=== PATIENT | female | born 1960 | race Caucasian/White ===

== ENCOUNTER → 2021-07-20 | Outpatient (CLI) | payer BC ==
[~2021-07-20] MED LIST: AMARYL4 MG PO; CELECOXIB200 MG PO; CELEXA20 MG PO; COMBIVENT INH; COZAAR 50 MG TA50 M1 PO; JANUMET XR 50-1 EAC1 PO; LEVOTHYROXINE 0.15MG PO; LEXAPRO20 MG PO; PRILOSEC 20 MG20 MG PO; SOLIQUA 100 UNIT3 ML SUBQ; TRESIBA100 UNIT/1 SUBQ
== END ==
LOC: M.PC 09:31
PROVIDERS: ATTEND Physical Medicine & Rehabilitation
DX: M51.16 Intervertebral disc disorders with radiculopathy, lumbar region (principal); M48.061 Spinal stenosis, lumbar region without neurogenic claudication; M47.26 Other spondylosis with radiculopathy, lumbar region; M43.16 Spondylolisthesis, lumbar region; M79.605 Pain in left leg; I10 Essential (primary) hypertension; E11.9 Type 2 diabetes mellitus without complications; E03.9 Hypothyroidism, unspecified

== ENCOUNTER → 2021-07-26 | Outpatient (CLI) | payer BC ==
--- NOTE | 2021-07-26 16:31 | CARDNUC ---
[place] [address] CARDIAC NUCLEAR IMAGING REPORT Name: TAMIA BRUCE Room: [facility]#: [id number] Admission: 07/26/21 Attend Phys: Elsie Theodore Discharge: Date of : 60 Date of Service: 07/26/21 1631 Report #: [id number] THIS REPORT FOR: cc: Freddy Reese MD, Anthony MD [place],Nirmal Foster MD [facility] ~ APPROVED REPORT Imaging Protocol: Rest Tc-99m/Stress Tc-99m 1 day Study performed: 07/26/2021 09:26:00 Indication: High Calcium score Patient Location: Out-Patient Stress Tech: shara Stress Nurse: Shara Mclaughlin RN NM Tech:SKYE Hillman Ht: 5 ft 3 in Wt: 162 lbs BSA: 1.77 m2 BMI: 28.69 Medical History Medical History: COPD, CAD non obstructive, Diabetes, HTN Medications: losartan Allergies: penisillin Cardiac Risk Factors: Age, DM, HTN Exercise History: Sedentary Resting Data Rest SPECT myocardial perfusion imaging was performed in supine position 30 minutes following the intravenous injection of 10.1 mCi of Tc-99m Sestamibi. Time of rest injection: 819 Date: 07/26/2021 The images were gated to evaluate regional wall motion and calculate left ventricular ejection fraction. Administration Route: IV Pharmacologic Stress Pharmacologic stress test was performed by injecting Regadenoson 0.4 mg IV push over 10-15 seconds immediately followed by the intravenous injection of 34.0 mCi of Tc-99m Sestamibi. Time of stress injection: 934 Date: 07/26/2021 Administration Route: IV Gated Stress SPECT was performed 40 [place] [address] CARDIAC NUCLEAR IMAGING REPORT Name: TAMIA BRUCE [id number] Admission: 07/26/21 Attend Phys: Elsie Theodore Discharge: Date of : 60 Date of Service: 07/26/21 1631 Report #: [id number] injection. The images were gated to evaluate regional wall motion and calculate left ventricular ejection fraction. Prone imaging was performed. Stress Test Details Stress Test: Pharmacologic stress testing performed using 0.4 mg of regadenoson per 5 mL given IV over 10 seconds. Reason for pharmacologic stress test: physical limitation. HR Max Heart Rate (APMHR): 159 bpm Resting HR: 65 bpm Target HR (85% APMHR): 135 bpm Max HR Achieved: 88 bpm % of APMHR: 55 Recovery HR: 89 bpm BP Resting BP: 113/69 mmHg Max BP: 111/88 mmHg Recovery BP: 126/61 mmHg ECG Resting ECG: Sinus Rhythm Stress ECG: Sinus Rhythm ST Change: None Arrhythmia: None Recovery ECG: Sinus Rhythm Recovery ST Change: None Recovery Arrhythmia: None Clinical Reason for Termination: Completed protocol The patient tolerated Lexiscan infusion without significant cardiac symptoms. Nurse Comments Patient has back and leg pain Stress ECG Conclusion The baseline twelve-lead EKG shows sinus rhythm without significant ST segment or T wave abnormality. EKGs obtained during and post Lexiscan infusion shows sinus rhythm with no significant ST segment or T wave changes when compared to baseline. There were no stress-induced arrhythmias. Study Quality Study: [place] [address] CARDIAC NUCLEAR IMAGING REPORT Name: TAMIA BRUCE MIRTA Room: [facility]#: [id number] Admission: 07/26/21 Attend Phys: Elsie Theodore Discharge: Date of : 60 Date of Service: 07/26/21 1631 Report #: [id number] Artifact: No artifact Study Data At rest, the left ventricular ejection fraction was 72%.. Post stress, the left ventricular ejection was 77%.. TID = 1.00. Perfusion There is a small in size moderate intensity reversible defect seen in the apical portion of the inferolateral wall. No other significant fixed or reversible defects are identified. Wall Motion Gated studies are technically inadequate for interpretation. Raw data suggests relatively preserved LV systolic function. Nuclear Conclusion ECG Findings: negative for ischemia Clinical Findings: negative for ischemia Nuclear Findings: positive for ischemia Exercise Capacity: not assessed Left Ventricular Function: Preserved Risk Study: moderate Study suggest inducible ischemia of the apical portion of the inferolateral wall. Global LV systolic function appears to be preserved. This is a moderate risk study. <Conclusion> The baseline twelve-lead EKG shows sinus rhythm without significant ST segment or T wave abnormality. EKGs obtained during and post Lexiscan infusion shows sinus rhythm with no significant ST segment or T wave changes when compared to baseline. There were no stress-induced arrhythmias. <ELECTRONICALLY SIGNED> By: Nirmal Garcia MD, FACC 07/26/21 1631 163 [id number] Nirmal Garcia MD, FACC /INF
== END ==
LOC: M.NUC 07-15 14:41
PROVIDERS: ATTEND Internal Medicine
DX: R93.1 Abnormal findings on diagnostic imaging of heart and coronary circulation (principal); E11.9 Type 2 diabetes mellitus without complications; Z79.4 Long term (current) use of insulin; Z72.0 Tobacco use

== ENCOUNTER 2021-08-05 07:35 | Observation (INO) | payer BC ==
[2021-08-05] VITALS (11 sets, daily range): BP systolic 11–150; BP diastolic 53–66
[~2021-08-05] VITALS: Ht 152.4 cm; Wt 73.9 kg
--- NOTE | ~2021-08-05 | H ---
[address] [address] HISTORY AND PHYSICAL Name: TAMIA BRUCE MIRTA Room: [address] Anali Pham#: [id number] Admission: 08/05/21 Attend Phys: Arnoldo Kelly MD, Discharge: 08/06/21 Date of : 60 Report #: [id number] THIS REPORT FOR: cc: Freddy Reese MD, Anthony MD [facility],Medical Records Staff ~ Please refer to the History and Physical performed in the physician's office. By: 0655Medical Records Staff PIERRE /SANDRA
--- NOTE | ~2021-08-05 | D ---
[address] [address] DISCHARGE SUMMARY Name: TAMIA BRUCE Room: [address] Anali Pham#: [id number] Admission: 08/05/21 Attend Phys: Arnoldo Kelly MD, Discharge: Date of : 60 Report #: [id number] THIS REPORT FOR: cc: Freddy Reese MD, Anthony MD Holkins,Arnoldo Monson MD [facility] ~ DATE OF DISCHARGE: 08/06/2021 LOCATION: The patient discharged from room 220 on 08/06/2021. FINAL DISCHARGE DIAGNOSES: 1. Abnormal nuclear stress test. 2. Coronary artery disease. 3. Diabetes mellitus. 4. Hypertension. 5. Hyperlipidemia. 6. Arthritis. PROCEDURES: On 08/05/2021 - Left heart catheterization, left ventriculography, selective coronary arteriography and percutaneous coronary intervention with deployment of drug-eluting stents at the site of 90% mid LAD stenosis. HOSPITAL COURSE: The patient is a pleasant 61-year-old female who presented to the office to see me with the risk factors for coronary artery disease and markedly increased coronary calcium score with a predominance distributed in the right coronary distribution. She had an abnormal nuclear stress test with inducible inferior ischemia. Given her multiple risk factors, increased coronary calcium score and abnormal nuclear stress test, I proceeded with cardiac catheterization on 08/05/2021. That study revealed significant coronary artery disease characterized by the following: A. A 90% mid LAD stenosis with collaterals in the distal LAD to a chronic total occluded right coronary artery. B. A 75% narrowing in the first marginal branch of the nondominant circumflex. C. Total mid right coronary occlusion with recanalization that faintly filled the distal right coronary antegrade fashion with CARRINGTON 1 flow with prominent left to right collateral from the apical LAD and the septum filling the distal right coronary artery. LV function was normal, estimated ejection fraction of 65% without segmental wall motion abnormalities. Given this anatomy and the clinical context, I elected to perform a PCI, deploying 2 drug-eluting stents, one 2.0 x 12 and one 2.0 x 8 [place] [address] DISCHARGE SUMMARY Name: TAMIA BRUCE MIRTA Room: [address] M.R.#: [id number] Admission: 08/05/21 Attend Phys: Arnoldo Kelly MD, Discharge: Date of : 60 Report #: [id number] of the LAD with 0% residual narrowing and CARRINGTON 3 flow to the distal vessel. The patient did well post-procedurally and there was good hemostasis at the right femoral site of catheterization. She was started on dual antiplatelet therapy in the form of prasugrel and aspirin and continued on her other medications. DISCHARGE MEDICATIONS: The patient was discharged home on 08/06/2021 on the following medications: Prasugrel 10 mg daily, aspirin 81 mg daily, celecoxib 200 mg daily, Lexapro 20 mg daily, Amaryl 4 mg b.i.d., degludec insulin 30 units subcutaneously daily, glargine insulin 30 units subcutaneously daily, L-thyroxine or Synthroid 150 mcg daily, losartan 50 mg daily and p.r.n. sublingual nitroglycerin. The patient is scheduled to return to see my nurse practitioner in 7-10 days and myself in 6 weeks. By: 1504 1531Arnoldo Kelly MD, FACC /nt
[~2021-08-05 07:35] MED LIST changes: +ADULT LOW DOSE81 MG PO; +NITROGLYCERIN0.4 MG SUBLING
[2021-08-05 09:01] LABS: HEMATOCRIT 41.9 % (37.0-47.0); HEMOGLOBIN 14.4 gm/dL (12.0-15.0); MCH 31.2 pg (26.0-34.0); MCHC 34.4 g/dL (28.0-37.0); MCV 90.6 fL (80.0-100.0); MPV 7.5 fl. (7.2-11.1); RBC 4.63 mil/uL (4.20-5.00); RDW-CV 12.6 % (10.5-14.5); WBC 10.6 thou/uL (4.0-11.0)
[2021-08-05 09:12] LABS: ANION GAP 8 mmol/L (7-16); BUN 18 mg/dL (7-18); CALCIUM 9.3 mg/dL (8.5-10.1); CHLORIDE 100 mmol/L (98-107); CO2 28 mmol/L (21-32); CREATININE 0.8 mg/dL (0.6-1.3); GLUCOSE 250 mg/dL (70-99); POTASSIUM 4.7 mmol/L (3.5-5.1); SODIUM 136 mmol/L (136-145)
[2021-08-05 09:16] LABS: INR 0.9; PROTIME 10.1 Seconds (9.20-11.50)
[2021-08-05 09:24] LABS: ALBUMIN 3.5 g/dL (3.4-5.0); ALKALINE PHOSPHATASE 117 U/L (46-116); SGOT 11 U/L (15-37); SGPT 26 U/L (30-65); TOTAL BILIRUBIN 0.3 mg/dL (<0.1-1.0); TOTAL PROTEIN 6.9 g/dL (6.4-8.2)
[2021-08-05 09:36] LABS: CHOLESTEROL 262 mg/dL (<200); HDL CHOLESTEROL 35 mg/dL (>40); TC:HDL 7.5 Ratio (Not establshd); TRIGLYCERIDE 467 mg/dL (<150); VLDL 93 mg/dL (<40)
[2021-08-05 09:37] LABS: LDL CHOLESTEROL ND mg/dL (<100); SERUM ASSESSMENT Clear
--- NOTE | 2021-08-05 13:24 | CARD ---
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 The right femoral was infiltrated with 2% Lidocaine subcutaneous anesthesia. IV conscious sedation was used throughout procedure with appropriate monitoring and was performed in the presence of a registered nurse who was an independent trained observer other than the physician performing the procedure. A 6 Fr Banquete sheath was inserted into the right femoral artery. Coronary angiography was performed using coronary diagnostic catheters. The right coronary system was accessed and visualized with a 6Fr 3DRC catheter. The left coronary system was accessed and visualized with a 6Fr JL3.5 catheter. The left ventricle was accessed and visualized with a 6Fr Stra[place] [address] CARDIAC CATH REPORT Name: TAMIA BRUCE Room: [address]#: [id number] Admission: 08/05/21 Attend Phys: Arnoldo Kelly MD, Discharge: Date of : 60 Report #: [id number] Left ventricular/Aortic Valve gradient assessed via catheter pullback. Left ventriculogram was performed in SNELL projection. Pre-demployment femoral angiogram was performed in SNELL. Closure device was deployed with a 6 Fr Angioseal. The patient tolerated the procedure well and there were no complications associated with the procedure. There was no hematoma. Intraoperative Conscious Sedation Sedation start time: 957 Case end Time: 1104 Fentanyl 25.0 mcg Versed 3.0 mg Fluoro Time: 15.2 minutes Dose: DAP [id number] cGycm2 1725 mGy Contrast Type and Amount: Visipaque 290 ml Coronary Angiography The patient's coronary anatomy is right dominant. Diagnostic Cath Left Main 0% narrowing LAD 90% mid vessel stenosis Circumflex 75% stenosis of the first marginal branch of the nondominant circumflex Right Coronary 100% occlusion of the mid right coronary artery with recanalization to fill the distal right coronary artery with CARRINGTON I flow; there were prominent [id number]-[id number] collaterals from the LAD filling the distal right coronary artery Left Ventriculography The left ventricle is normal in size with normal contractility. The left ventricular ejection fraction is estimated to be 65%. Left ventricular wall motion abnormalities are not present. There is no mitral insufficiency. Hemodynamics The aortic pressure is 97/51 mmHg with a mean of 70 mmHg. The left ventricular pressure is 98/1 mmHg with a mean of 6 mmHg. The left ventricular end diastolic pressure is 6 mmHg. There was no gradient across the aortic valve upon pullback. PCI Technique Lesion Anticoagulation was achieved with Angiomax. Percutaneous coronary intervention was performed on the mid left anterior descending artery segment. The lesion stenosis prior to intervention [place] 90% [place] [address] CARDIAC CATH REPORT Name: TAMIA BRUCE MIRTA Room: [address]#: [id number] Admission: 08/05/21 Attend Phys: Arnoldo Kelly MD, Discharge: Date of : 60 Report #: [id number] flow. A XBLAD 3 6Fr Guide Catheter was used to engage the Left ostium. A 190cm BMW Interventional Guidewire was used to cross the lesion. BALLOON DILATION A Balloon catheter 2.0 x 8 Mini Trek was inserted and inflated up to 10atm for 14seconds. Additional Inflation: 9atm for 12seconds. STENT DEPLOYMENT A 2.0 x 12 [place] stent was inserted and inflated up to 10atm for 16seconds. Additional Inflation: 9atm for 10seconds. 2.0 x 8 mm [place] was deployed just proximal to the first stent to pressures of 10 to 12 christie POST STENT DEPLOYMENT BALLOON DILATION A Balloon catheter 2.0 x 8 NC Trek was inserted and inflated up to 16atm for 14seconds. Additional Inflation: 17atm for 11seconds. Final angiography reveals 0 % stenosis with CARRINGTON 3 flow. Conclusion 1. Significant multivessel coronary artery disease characterized by the following: A 90% stenosis of the midportion of the LAD B nondominant circumflex with 75% proximal first marginal stenosis C dominant right coronary artery which is totally occluded in the midportion with recanalization to fill the distal right coronary artery in antegrade fashion with CARRINGTON I flow; there are prominent collaterals from the LAD to the distal right coronary artery 2. Normal LV function, estimated ejection fraction 65% 3. Normal left-sided hemodynamic study 4. Successful PCI with deployment of sequential drug-eluting stents at the site of 90% mid LAD stenosis with 0% residual narrowing and CARRINGTON-3 flow to the distal vessel Recommendations Cardiac [place] [address] CARDIAC CATH REPORT Name: TAMIA BRUCE Room: [address] Anali MMoonRMoon#: [id number] Admission: 08/05/21 Attend Phys: Arnoldo Kelly MD, Discharge: Date of : 60 Report #: [id number] Aggressive Medical Therapy Medications Administered Aspirin (any) Prasugrel Diagnostic Cath Approved by: Arnoldo Kelly MD Date/Time: 08/05/2021 13:23:03 <ELECTRONICALLY SIGNED> By: Arnoldo Kelly MD, FACC 08/05/21 1324 1324 1324Jostephie Kelly MD, FACC /INF
--- NOTE | 2021-08-05 14:38 | EKG ---
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
--- NOTE | 2021-08-05 14:41 | EKG ---
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
--- NOTE | 2021-08-05 14:52 | NUR ---
The patient arrived at 1315. The patient is alert. Able to make needs known. Dressing intact to rt groin. D/C/I soft non tender to right groin. Call light within reach. She ate lunch. She was educated she cant get up until 5pm. [place]wick placed to void. She denies discomfort.
--- NOTE | 2021-08-05 17:11 | NUR ---
Vitals sign and surgicial check done at ordered. The site remains non tendered and soft. Dressing C/D/I. The patient is sitting up eating dinner.
[2021-08-06] VITALS: BP 135/66
--- NOTE | 2021-08-06 03:01 | NUR ---
PT ALERT ORIENTED. UP AD SAMUEL. ON RA. NS AT 100ML/HR. 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 Tommy GARCIA C/D/I
[2021-08-06 04:00] VITALS: BP 124/65
[2021-08-06 04:37] LABS: HEMATOCRIT 39.1 % (37.0-47.0); HEMOGLOBIN 13.4 gm/dL (12.0-15.0); MCH 31.1 pg (26.0-34.0); MCHC 34.3 g/dL (28.0-37.0); MCV 90.6 fL (80.0-100.0); MPV 7.5 fl. (7.2-11.1); RBC 4.32 mil/uL (4.20-5.00); RDW-CV 12.8 % (10.5-14.5); WBC 10.5 thou/uL (4.0-11.0)
[2021-08-06 05:20] LABS: CALCIUM 8.4 mg/dL (8.5-10.1); CK-MB MASS 1.9 ng/mL (<0.5-3.6); CREATININE 0.7 mg/dL (0.6-1.3); POTASSIUM 4.3 mmol/L (3.5-5.1); TOTAL BILIRUBIN 0.3 mg/dL (<0.1-1.0); TOTAL PROTEIN 5.9 g/dL (6.4-8.2)
[2021-08-06 09:00] VITALS: BP 111/55
[2021-08-06] MEDS ORDERED: EFFIENT10 MG PO (11:24)
--- NOTE | 2021-08-06 11:31 | NUR ---
0945-upon entering room pt reports that she already took all of her home meds and only needs the insulin given that was sent to rx to be labeled and identified earlier. This nurse was unaware that the pt had her other home meds in the room or she would have informed pt to wait and have hospital administer her meds. Pt is quite anxious to leave and is to be dcd today when md arrives.
[2021-08-06 11:40] VITALS: BP 124/65
[2021-08-06 16:16] VITALS: BP 124/65
== END 2021-08-06 12:03 | disposition home or self-care (01) ==
LOC: M.CL 07:35 → M.TBA-CV 11:16 → M.2W 13:11
PROVIDERS: ADMIT Internal Medicine; ATTEND Internal Medicine
DX: I25.10 Atherosclerotic heart disease of native coronary artery without angina pectoris (principal); R94.39 Abnormal result of other cardiovascular function study; E78.5 Hyperlipidemia, unspecified; E11.9 Type 2 diabetes mellitus without complications; I10 Essential (primary) hypertension; Z20.822 Contact with and (suspected) exposure to COVID-19; M19.90 Unspecified osteoarthritis, unspecified site; E78.00 Pure hypercholesterolemia, unspecified; Z79.01 Long term (current) use of anticoagulants; Z79.899 Other long term (current) drug therapy